=== PATIENT | female | born 1940 | race Caucasian/White ===

== ENCOUNTER 2018-08-14 11:14 | Emergency (ER) | payer MEDICARE, OTHER ==
[~2018-08-14] VITALS: Ht 152.4 cm; Wt 72.6 kg
[2018-08-14] MEDS ORDERED: XANAX 0.25 MG0.25 MG PO (11:27)
[2018-08-14] MEDS ORDERED: NORTRIPTYLINE H50 M3 PO (11:27)
[2018-08-14] MEDS ORDERED: OMEPRAZOLE40 MG PO (11:28)
[2018-08-14] MEDS ORDERED: ATORVASTATIN CA40 MG PO (11:28)
[2018-08-14] MEDS ORDERED: SYNTHROID50 MCG PO (11:28)
[2018-08-14] MEDS ORDERED: ASPIR 8181 MG PO (11:29)
[2018-08-14] MEDS ORDERED: COMTAN200 MG PO (11:31)
[2018-08-14] MEDS ORDERED: SINEMET 25-1001 EAC1 PO (11:31)
[2018-08-14] MEDS ORDERED: HYDROCODONE-AP1 EAC6 PO (12:01)
[2018-08-14 12:08] VITALS: BP 145/88
== END 2018-08-14 12:11 | disposition home or self-care (01) ==
LOC: M.ERS 11:14
DX: S00.03XA Contusion of scalp, initial encounter (principal); W18.39XA Other fall on same level, initial encounter; Y93.89 Activity, other specified; Y92.89 Other specified places as the place of occurrence of the external cause; Y99.8 Other external cause status